=== PATIENT | female | born 1955 | race Caucasian/White ===

== ENCOUNTER 2016-12-15 08:07 | Outpatient (CLI) | payer BC ==
--- NOTE | 2016-12-15 14:20 | RAD ---
THREE VIEWS OF THE LUMBAR SPINE: Indication: Low back pain. Comparison: None. FINDINGS: There are five lumbar type vertebrae. There is multilevel disc degenerative facet osteoarthritic toyin nge. There are scattered vascular calcifications. No acute fracture or subluxation is evident. The b owel gas pattern in unobstructed. IMPRESSION: Mild spondylosis of lumbar spine. No acute osseous abnormality. POS: [facility]
== END 2016-12-15 08:08 | disposition home or self-care (01) ==
LOC: BURRAD 08:07
PROVIDERS: ATTEND Family Medicine
DX: M54.5 Low back pain (principal); M47.896 Other spondylosis, lumbar region
CPT/HCPCS: 72100